=== PATIENT | male | born 1960 | race African-American/Black ===

== ENCOUNTER 2018-11-11 12:05 | Inpatient (IN) | payer OTHER ==
[2018-11-11 12:44] VITALS: BMI 38.3
--- NOTE | 2018-11-11 13:37 | HP ---
CIWA Score Nausea/Vomitin Muscle Tremors: 4-Moderate,w/Arms Extend Anxiety: 4-Mod. Anxious/Guarded Agitation: 1-Slight > Activity Paroxysmal Sweats: No Perspiration Orientation: 0-Oriented Tacttile Disturbances: 1-Very Mild Itch/Numbness Auditory Disturbances: 1-Very Mild Visual Disturbances: 1-Very Mild Sensitivity Headache: 2-Mild CIWA-Ar Total Score: 16 - Admission Criteria OASAS Guidelines: Admission for Medically Managed Detox: Requires at least one of the followin. CIWA greater than 12 2. Seizures within the past 24 hours 3. Delirium tremens within the past 24 hours 4. Hallucinations within the past 24 hours 5. Acute intervention needed for co occurring medical disorder 6. Acute intervention needed for co occurring psychiatric disorder 7. Severe withdrawal that cannot be handled at a lower level of care (continued vomiting, continued diarrhea, abnormal vital signs) requiring intravenous medication and/or fluids 8. Patient presents the following: CIWA greater than 12 Admission Criteria Met: Admission criteria met Admission ROS S - HPI Chief Complaint: I want my life back - I was doing good till I met this woman Allergies/Adverse Reactions: Allergies Allergy/AdvReac Type Severity Reaction Status Date / Time gluten Allergy Intermediate Verified 11/11/18 12:30 Penicillins Allergy Intermediate Rash Verified 11/11/18 12:30 History of Present Illness: 57 yo gentleman here for detox from alcohol - uses heroin but just occasional. Patient last here in 2013 for detox - did well until April 2018 when he relapsed. History of black outs but no seizures. States he drinks all day, ' from the time the liquor store opens'. He has been kicked out of residence due to drinking but has continued to work (does [email or web address] work). Because his work involves travel he has no primary doctor, rather gets insulin and metformin from various emergency room departments but has not used either for two weeks. [id number] so will hold insulin for now and monitor BGM. Exam Limitations: Clinical Condition - Ebola screening Have you traveled outside of the country in the last 21 days: No (N) Have you had contact with anyone from an Ebola affected area: No Do you have a fever: No - Review of Systems Constitutional: Loss of Appetite, Malaise, Changes in sleep EENT: reports: Blurred Vision (left eye 'cloudy') Respiratory: reports: No Symptoms reported Cardiac: reports: No Symptoms Reported GI: reports: Indigestion, Abdominal cramping : reports: No Symptoms Reported Musculoskeletal: reports: Joint Pain (left knee) Integumentary: reports: Dryness Neuro: reports: Headache, Tremors Endocrine: reports: No Symptoms Reported Hematology: reports: No Symptoms Reported Psychiatric: reports: Mood/Affect Appropiate, Orientated x3, Anxious Other Systems: Reviewed and Negative Patient History - Patient Medical History Hx Anemia: No Hx Asthma: Yes Hx Chronic Obstructive Pulmonary Disease (COPD): No Hx Cancer: No Hx Cardiac Disorders: No Hx Congestive Heart Failure: No Hx Hypertension: No Hx Hypercholesterolemia: No Hx Pacemaker: No HX Cerebrovascular Accident: No Hx Seizures: No Hx Dementia: No Hx Diabetes: Yes (INSULIN DEP) Hx Gastrointestinal Disorders: Yes (GERD) Hx Liver Disease: No Hx Genitourinary Disorders: No Hx Sexually Transmitted Disorders: No Hx Renal Disease (ESRD): No Hx Thyroid Disease: No Hx Human Immunodeficiency Virus (HIV): No Hx Hepatitis C: No Hx Depression: No Hx Suicide Attempt: No (denies) Hx Bipolar Disorder: No Hx Schizophrenia: No - Patient Surgical History Past Surgical History: No Hx Neurologic Surgery: No Hx Cataract Extraction: No Hx Cardiac Surgery: No Hx Lung Surgery: No Hx Breast Surgery: No Hx Breast Biopsy: No Hx Abdominal Surgery: No Hx Appendectomy: No Hx Cholecystectomy: No Hx Genitourinary Surgery: No Hx Section: No Hx Orthopedic Surgery: No Anesthesia Reaction: No - PPD History Previous Implant?: Yes Documented Results: Positive w/o proof (states PPD+ 1996 treated with INH x 6 months) Implanted On Prior R Admission?: No Date: 10/19/12 (cxr normal) PPD to be Administered?: No - Reproductive History Patient is a Female of Child Bearing Age (11 -55 yrs old): No - Smoking Cessation Smoking history: Current every day smoker Have you smoked in the past 12 months: No Aproximately how many cigarettes per day: 6 Hx Chewing Tobacco Use: No Initiated information on smoking cessation: Yes 'Breaking Loose' booklet given: 11/11/18 - Substances abused Heroin Substance route: Inhalation Frequency: 1-3 times last 30 days Amount used: two snorts Age of first use: 57 Date of last use: 11/10/18 Alcohol Substance route: Oral Frequency: Daily Amount used: 2 pints yvette and 6-40oz beer Age of first use: 15 Date of last use: 11/11/18 Crack Substance route: Smoking Frequency: 1-3 times last 30 days Amount used: 4 grams Age of first use: 31 Date of last use: 11/11/18 Marijuana/Hashish Substance route: Smoking Frequency: Daily Amount used: 6 blunts Age of first use: 18 Date of last use: 11/11/18 Family Disease History - Family Disease History Family Disease History: Diabetes: Sister Admission Physical Exam [facility] - Vital Signs Vital Signs: Vital Signs - 24 hr 11/11/18 12:36 Temperature 97.3 F L Pulse Rate 97 H Respiratory 18 Rate Blood Pressure 129/78 - Physical General Appearance: Yes: Nourished, Appropriately Dressed, Moderate Distress, Obese, Tremorous, Anxious HEENTM: Yes: EOMI, Hearing grossly Normal, Normocephalic, Normal Voice, Pharynx Normal, Other (tongue coated) Respiratory: Yes: Normal Breath Sounds, No Respiratory Distress Neck: Yes: Supple, Other (possible lump over thyroid) Breast: Yes: Breast Exam Deferred Cardiology: Yes: Regular Rhythm, Regular Rate Abdominal: Yes: Soft, Protuberent Genitourinary: Yes: Within Normal Limits Back: Yes: Normal Inspection Musculoskeletal: Yes: full range of Motion, Joint Stiffness (right knee) Extremities: Yes: Pedal Edema, Other (both lower extremities with hyperpigmentation, thickened skin) Neurological: Yes: Fully Oriented, Alert, Normal Mood/Affect, Normal Response, Numbness Integumentary: Yes: Normal Color, Warm Lymphatic: Yes: Within Normal Limits - Diagnostic (1) Alcohol dependence with uncomplicated withdrawal Current Visit: Yes Status: Acute (2) Opiate abuse, episodic Current Visit: Yes Status: Acute (3) Cannabis dependence Current Visit: Yes Status: Acute (4) Cocaine dependence Current Visit: Yes Status: Active (5) Diabetes mellitus with insulin therapy Current Visit: Yes Status: Chronic Comment: [id number] (6) PAD (peripheral artery disease) Current Visit: Yes Status: Chronic (7) Obesity Current Visit: Yes Status: Chronic (8) Nicotine dependence Current Visit: Yes Status: Acute Qualifiers: Nicotine product type: cigarettes Substance use status: uncomplicated Qualified Code(s): F17.210 - Nicotine dependence, cigarettes, uncomplicated (9) Tinea pedis Current Visit: Yes Status: Chronic Qualifiers: Laterality: bilateral Qualified Code(s): B35.3 - Tinea pedis Cleared for Admission S - Detox or Rehab [facility] Level of Care: Medically Managed Detox Regimen/Protocol: Librium Breathalyzer - Breathalyzer Breathalyzer: 0 Urine Drug Screen - Test Device Lot number: [id number] Expiration date: 07/13/20 - Control Is test valid?: Yes - Results Drug screen NEGATIVE: No Urine drug screen results: THC-Marijuana, SHERIF-Cocaine, MOP-Opiates Inpatient Rehab Admission - Rehab Decision to Admit Inpatient rehab admission?: No
[2018-11-11] MEDS ORDERED: IBUPROFEN 400 MG TABLET (FP) PO PRN (13:55)
[2018-11-11] MEDS ORDERED: BISMUTH SUBSALICYLATE 524 MG/30 ML UD PO PRN (13:55)
[2018-11-11] MEDS ORDERED: MAG HYDROX/AL HYDROX/SIMETH 30 ML UNIT-DOSE CUP PO PRN (13:55)
[2018-11-11] MEDS ORDERED: chlordiazePOXIDE HCL 25 MG CAPSULE PO ONE (13:55)
[2018-11-11] MEDS ORDERED: MAGNESIUM HYDROX 2400MG/30ML ORAL SUSPENSION 30 ML CUP PO PRN (13:55)
[2018-11-11] MEDS ORDERED: ACETAMINOPHEN 325 MG TABLET (FP) PO PRN (13:55)
[2018-11-11] MEDS ORDERED: MELATONIN 5 MG TABLETS PO PRN (13:55)
[2018-11-11] MEDS ORDERED: hydrOXYzine PAMOATE 25 MG CAPSULE (FP) PO PRN (13:55)
[2018-11-11] MEDS ORDERED: METHOCARBAMOL 500 MG TABLET PO PRN (13:55)
[2018-11-11] MEDS ORDERED: MAGNESIUM CITRATE 300 ML BOTTLE PO PRN (13:55)
[2018-11-11] MEDS ORDERED: MENTHOL/PHENOL 1 EACH UD MM PRN (13:55)
[2018-11-11] MEDS ORDERED: chlordiazePOXIDE HCL 25 MG CAPSULE PO PRN (13:55)
[2018-11-11] MEDS ORDERED: COLLOIDAL OATMEAL 1 BAR EACH TP PRN (13:58)
[2018-11-11] MEDS ORDERED: metFORMIN HCL 500 MG TABLET (FP) PO SCH (14:00)
[2018-11-11] MEDS ORDERED: ALBUTEROL SO4 8 GM HFA INHALER IH PRN (14:00)
[2018-11-11] MEDS: NICOTINE 14 MG/24 HOURS TOPICAL PATCH TD SCH (15:00)
[2018-11-11] MEDS: TOLNAFTATE 1% CREAM 15 GM TUBE TP SCH ×2 (15:00→23:42)
[2018-11-11] MEDS: metFORMIN HCL 500 MG TABLET (FP) PO SCH (18:12)
[2018-11-11] MEDS: INSULIN SLIDING SCALE (NOVOLOG) 1 VIAL SQ SCH ×2 (18:14→22:56)
[2018-11-11] MEDS: chlordiazePOXIDE HCL 25 MG CAPSULE PO SCH ×2 (18:17→23:00)
[2018-11-11] MEDS ORDERED: INSULIN (LEVEMIR) 100 UNITS/ML UNITS SQ SCH (22:00)
[2018-11-11] MEDS: THIAMINE HCL 100 MG TABLET (FP) PO SCH (23:00)
[2018-11-12] MEDS: chlordiazePOXIDE HCL 25 MG CAPSULE PO SCH ×5 (06:03→22:28)
[2018-11-12] MEDS: metFORMIN HCL 500 MG TABLET (FP) PO SCH ×2 (06:07→17:20)
[2018-11-12] MEDS: INSULIN SLIDING SCALE (NOVOLOG) 1 VIAL SQ SCH ×4 (07:52→22:37)
[2018-11-12 09:33] LABS: ALBUMIN 3.2 g/dl (3.4-5.0); BILIRUBIN,TOTAL 0.6 mg/dL (0.2-1); BLOOD UREA NITROGEN 11.8 mg/dL (7-18); CALCIUM 8.6 mg/dL (8.5-10.1); POTASSIUM 3.9 mmol/L (3.5-5.1); TOT PROT 6.8 g/dl (6.4-8.2)
[2018-11-12 09:35] LABS: HEMATOCRIT 40.9 % (35.4-49); HEMOGLOBIN 13.8 GM/dL (11.7-16.9); MCHC 33.8 g/dl (32.0-35.9); MEAN CELL VOLUME 97.6 fl (80-96); MEAN PLT VOLUME 7.5 fl (7.5-11.1); RDW 14.1 % (11.9-15.9); WHITE BLOOD COUNT 4.7 K/mm3 (4.0-10.0)
[2018-11-12 10:04] LABS: PLATELET COUNT 195 K/MM3 (134-434)
[2018-11-12] MEDS: PRENATAL VITAMINS W/ FOLIC ACID TABLET (FP) PO SCH (10:49)
[2018-11-12] MEDS: NICOTINE 14 MG/24 HOURS TOPICAL PATCH TD SCH (10:49)
[2018-11-12] MEDS: TOLNAFTATE 1% CREAM 15 GM TUBE TP SCH ×2 (11:00→22:27)
[2018-11-12] MEDS ORDERED: INSULIN SLIDING SCALE (NOVOLOG) 1 VIAL SQ ONE ×2 (12:02→22:35)
--- NOTE | 2018-11-12 14:09 | PN ---
[facility] CIWA - CIWA Score Nausea/Vomitin-Mild Nausea/No Vomiting Muscle Tremors: 4-Moderate,w/Arms Extend Anxiety: 3 Agitation: 3 Paroxysmal Sweats: 3 Orientation: 0-Oriented Tacttile Disturbances: 0-None Auditory Disturbances: 0-None Visual Disturbances: 0-None Headache: 0-None Present CIWA-Ar Total Score: 14 S Progress Note (SOAP) Subjective: Sweating, chills, tremor, diarrhea started this morning, interrupted sleep Objective: 11/12/18 14:07 Last Vital Signs Temp Pulse Resp BP Pulse Ox 98.1 F 91 H 17 107/59 L 11/12/18 11:24 11/12/18 11:24 11/12/18 11:24 11/12/18 11:24 Laboratory Tests 11/11/18 11/11/18 11/11/18 14:05 16:47 22:55 WBC RBC Hgb Hct MCV MCH MCHC RDW Plt Count MPV Sodium Potassium Chloride Carbon Dioxide Anion Gap BUN Creatinine Est GFR (CKD-EPI)AfAm Est GFR (CKD-EPI)NonAf POC Glucometer 174 156 189 Random Glucose Calcium Total Bilirubin AST ALT Alkaline Phosphatase Total Protein Albumin RPR Titer 11/12/18 11/12/18 11/12/18 06:01 07:30 07:30 WBC 4.7 RBC 4.20 Hgb 13.8 Hct 40.9 MCV 97.6 H MCH 33.0 MCHC 33.8 RDW 14.1 Plt Count 195 MPV 7.5 D Sodium 140 Potassium 3.9 Chloride 107 Carbon Dioxide 27 Anion Gap 6 L BUN 11.8 Creatinine 1.0 Est GFR (CKD-EPI)AfAm 97.77 Est GFR (CKD-EPI)NonAf 84.35 POC Glucometer 178 Random Glucose 157 H Calcium 8.6 Total Bilirubin 0.6 AST 16 ALT 22 Alkaline Phosphatase 83 Total Protein 6.8 Albumin 3.2 L RPR Titer 11/12/18 11/12/18 07:30 11:57 WBC RBC Hgb Hct MCV MCH MCHC RDW Plt Count MPV Sodium Potassium Chloride Carbon Dioxide Anion Gap BUN Creatinine Est GFR (CKD-EPI)AfAm Est GFR (CKD-EPI)NonAf POC Glucometer 212 Random Glucose Calcium Total Bilirubin AST ALT Alkaline Phosphatase Total Protein Albumin RPR Titer Nonreactive Labs reviewed: hyperglycemia noted r/t DM Assessment: 11/12/18 14:08 Withdrawal symptoms Plan: Continue detox Encouraged PO water intake Hyperglycemia secondary to DMT2: continue present diabetic regimen, follow up with PCP for management
[2018-11-12] MEDS: THIAMINE HCL 100 MG TABLET (FP) PO SCH (22:28)
[2018-11-13] MEDS: chlordiazePOXIDE HCL 25 MG CAPSULE PO SCH ×2 (06:19→10:34)
[2018-11-13] MEDS: metFORMIN HCL 500 MG TABLET (FP) PO SCH ×2 (06:20→16:53)
[2018-11-13] MEDS ORDERED: INSULIN SLIDING SCALE (NOVOLOG) 1 VIAL SQ ONE ×2 (06:24→11:32)
[2018-11-13] MEDS: INSULIN SLIDING SCALE (NOVOLOG) 1 VIAL SQ SCH ×4 (06:25→22:14)
[2018-11-13] MEDS: PRENATAL VITAMINS W/ FOLIC ACID TABLET (FP) PO SCH (10:34)
[2018-11-13] MEDS: TOLNAFTATE 1% CREAM 15 GM TUBE TP SCH ×2 (10:34→22:20)
[2018-11-13] MEDS: NICOTINE 14 MG/24 HOURS TOPICAL PATCH TD SCH (10:35)
--- NOTE | 2018-11-13 12:24 | PN ---
S CIWA - CIWA Score Nausea/Vomitin-No Nausea/No Vomiting Muscle Tremors: 2 Anxiety: 1-Mildly Anxious Agitation: 1-Slight > Activity Paroxysmal Sweats: No Perspiration Orientation: 0-Oriented Tacttile Disturbances: 0-None Auditory Disturbances: 0-None Visual Disturbances: 0-None Headache: 0-None Present CIWA-Ar Total Score: 4 BHS Progress Note (SOAP) Subjective: feeling so much better little anxiety i need to go home tomorrow and follow up with [facility] for my aftercare Objective: 11/13/18 12:23 Vital Signs Temperature 98.1 F 11/13/18 09:18 Pulse Rate 91 H 11/13/18 09:18 Respiratory Rate 17 11/13/18 09:18 Blood Pressure 134/78 11/13/18 09:18 O2 Sat by Pulse Oximetry (%) Laboratory Tests 11/11/18 11/11/18 11/11/18 14:05 16:47 22:55 WBC RBC Hgb Hct MCV MCH MCHC RDW Plt Count MPV Sodium Potassium Chloride Carbon Dioxide Anion Gap BUN Creatinine Est GFR (CKD-EPI)AfAm Est GFR (CKD-EPI)NonAf POC Glucometer 174 156 189 Random Glucose Calcium Total Bilirubin AST ALT Alkaline Phosphatase Total Protein Albumin RPR Titer 11/12/18 11/12/18 11/12/18 06:01 07:30 07:30 WBC 4.7 RBC 4.20 Hgb 13.8 Hct 40.9 MCV 97.6 H MCH 33.0 MCHC 33.8 RDW 14.1 Plt Count 195 MPV 7.5 D Sodium 140 Potassium 3.9 Chloride 107 Carbon Dioxide 27 Anion Gap 6 L BUN 11.8 Creatinine 1.0 Est GFR (CKD-EPI)AfAm 97.77 Est GFR (CKD-EPI)NonAf 84.35 POC Glucometer 178 Random Glucose 157 H Calcium 8.6 Total Bilirubin 0.6 AST 16 ALT 22 Alkaline Phosphatase 83 Total Protein 6.8 Albumin 3.2 L RPR Titer 11/12/18 11/12/18 11/12/18 07:30 11:57 16:40 WBC RBC Hgb Hct MCV MCH MCHC RDW Plt Count MPV Sodium Potassium Chloride Carbon Dioxide Anion Gap BUN Creatinine Est GFR (CKD-EPI)AfAm Est GFR (CKD-EPI)NonAf POC Glucometer 212 198 Random Glucose Calcium Total Bilirubin AST ALT Alkaline Phosphatase Total Protein Albumin RPR Titer Nonreactive 11/12/18 11/13/18 11/13/18 22:33 06:19 11:27 WBC RBC Hgb Hct MCV MCH MCHC RDW Plt Count MPV Sodium Potassium Chloride Carbon Dioxide Anion Gap BUN Creatinine Est GFR (CKD-EPI)AfAm Est GFR (CKD-EPI)NonAf POC Glucometer 285 208 253 Random Glucose Calcium Total Bilirubin AST ALT Alkaline Phosphatase Total Protein Albumin RPR Titer aaox3 ambulating no acute distress Assessment: 11/13/18 12:23 mild withdrawal sx Plan: continue with reduced detox regiment as per pt request d/c in am
[2018-11-13] MEDS ORDERED: chlordiazePOXIDE HCL 10 MG CAPSULE PO PRN (17:00)
[2018-11-13] MEDS: chlordiazePOXIDE HCL 10 MG CAPSULE PO SCH ×2 (18:10→22:20)
[2018-11-13] MEDS: THIAMINE HCL 100 MG TABLET (FP) PO SCH (22:20)
[2018-11-14] MEDS: metFORMIN HCL 500 MG TABLET (FP) PO SCH (06:38)
[2018-11-14] MEDS: chlordiazePOXIDE HCL 10 MG CAPSULE PO SCH (06:38)
[2018-11-14] MEDS ORDERED: INSULIN SLIDING SCALE (NOVOLOG) 1 VIAL SQ ONE (06:43)
[2018-11-14] MEDS: INSULIN SLIDING SCALE (NOVOLOG) 1 VIAL SQ SCH (06:44)
[2018-11-14 07:33] VITALS: BP 121/77; PULSE 91; TEMP 98.1
--- NOTE | 2018-11-14 08:51 | DS ---
[facility] Detox Discharge Summary Admission Date: 11/11/18 Discharge Date: 11/14/18 - History Present History: Alcohol Dependence, Cannabis Dependence, Cocaine Dependence, Opioid Dependence - Physical Exam Results Vital Signs: Vital Signs Temperature 98.1 F 11/14/18 07:32 Pulse Rate 91 H 11/14/18 07:32 Respiratory Rate 20 11/14/18 07:32 Blood Pressure 121/77 11/14/18 07:32 O2 Sat by Pulse Oximetry (%) - Treatment Hospital Course: Detox Protocol Followed, Detoxed Safely, Responded well, Discharged Condition Good, Rehab Referral Accepted - Medication Discharge Medications: Ambulatory Orders Albuterol Sulfate Inhaler - [Ventolin HFA Inhaler -] 2 inh IH Q4H PRN 10/18/12 Insulin Glargine,Hum.rec.anlog [Lantus Solostar PEN -] 44 units SQ HS #1 ins 07/04 metFORMIN HCL [Glucophage -] 500 mg PO BID #60 tablet 11/14/18 - Diagnosis (1) Cocaine dependence Current Visit: Yes Status: Acute (2) Alcohol dependence with uncomplicated withdrawal Current Visit: Yes Status: Chronic (3) Cannabis dependence Current Visit: Yes Status: Chronic (4) Nicotine dependence Current Visit: Yes Status: Chronic Qualifiers: Nicotine product type: cigarettes Substance use status: uncomplicated Qualified Code(s): F17.210 - Nicotine dependence, cigarettes, uncomplicated (5) Diabetes mellitus with insulin therapy Current Visit: Yes Status: Chronic (6) Obesity Current Visit: Yes Status: Chronic (7) PAD (peripheral artery disease) Current Visit: Yes Status: Chronic (8) Tinea pedis Current Visit: Yes Status: Chronic Qualifiers: Laterality: bilateral Qualified Code(s): B35.3 - Tinea pedis (9) Asthma Current Visit: No Status: Active (10) DM Diabetes mellitus type 2 Current Visit: No Status: Active (11) Stasis dermatitis Current Visit: No Status: Active - AMA Did Patient Leave Against Medical Advice: No (pt referred to [facility] inpatient rehab.)
[2018-11-14] MEDS ORDERED: chlordiazePOXIDE HCL 10 MG CAPSULE PO SCH (17:00)
== END 2018-11-14 09:07 | disposition home or self-care (01) | DRG 773 ==
LOC: YASAS 12:05 → Y6N 14:02
PROVIDERS: ADMIT Surgery; ATTEND Surgery
DX: F10.230 Alcohol dependence with withdrawal, uncomplicated (principal); F11.10 Opioid abuse, uncomplicated; F14.20 Cocaine dependence, uncomplicated; F12.20 Cannabis dependence, uncomplicated; F17.210 Nicotine dependence, cigarettes, uncomplicated; I83.10 Varicose veins of unspecified lower extremity with inflammation; I73.9 Peripheral vascular disease, unspecified; E11.65 Type 2 diabetes mellitus with hyperglycemia; Z79.4 Long term (current) use of insulin; J45.909 Unspecified asthma, uncomplicated; B35.3 Tinea pedis
CPT/HCPCS: 36415; 71046-TC-FY; 80053; 82962; 85027; 86593